=== PATIENT | female | born 1955 | race Caucasian/White ===

== ENCOUNTER → 2018-07-12 | Outpatient (CLI) | payer OTHER ==
[~2018-07-12] MED LIST: ALB0.5 IH; ALBU8.5H IH; ALBU8.5H12 IH; AMOX-559 PO; AZIT-17 PO; BECL8.7A6 IH; BECL8.7A6 INH; BENZ200C15 PO; CALC-1201 PO; CEPH250S35 PO; CHOL2000 PO; CLIN300C99 PO; CODE118S5 PO; DIC10 PO; DICY10CA11 PO; ESC10 PO; ESTR42.5 VG; FENO130C6 PO; FLAX100038 PO; FLUC150T40 PO; FLUT16SP19 NS; FOL1 PO; GLUC-232 PO; HYDR-654 PO; HYO375 PO; IBAN150T6 PO; IBU200 FT; LANS30CA63 PO; LANS30CA70 PO; LEVA1.2527 IH; LEVO-85 PO; LEVO750T44 PO; LISI-362 PO; LISI5TAB25 PO; METH4TAB66 PO; METO-253 PO; METO25TA89 PO; METO25TA93 PO; MONT10TA PO; MU-V1TAB9 PO; NIA100 PO; OMEG-26 PO; OSE75 PO; Oxygen; PRAM0.5T27 PO; PRAM0.7512 PO; PRED20TA6 PO; PROM5SYR PO; SIM10 PO; SIMV-42 PO; SIMV-49 PO; SIMV-54 PO; TOLT4CAP13 PO; UBIQ100C PO; UBIQ100C3 PO; VARI50KI IM; ZOST19404 SQ; [UNRECOGNIZED DRUG - CODE] PO; [UNRECOGNIZED DRUG - REMARK]; oxygen
== END ==
LOC: LAB 11:14
PROVIDERS: ATTEND Nurse Practitioner Family
DX: R73.01 Impaired fasting glucose (principal); R60.0 Localized edema
CPT/HCPCS: 36415; 83036; 85379

== ENCOUNTER → 2018-09-11 | Outpatient (CLI) | payer MEDICARE, OTHER ==
[~2018-09-11] MED LIST changes: +METO25TA23 PO; +METO50TA19 PO
--- NOTE | 2018-09-11 16:43 | RT STRESS TEST REPORT ---
FACILITY: [facility] PATIENT NAME: TOMMY DAMICO : [id number] MR: [id number] V: [id number] EXAM DATE: ORDERING PHYSICIAN: FANNIE MODI TECHNOLOGIST: Shree Acquisition Time: 2018-09-11 09:39:19 Total Exercise Time: 00:08:08 Test Indications: Chest Discomfort Medications: metoprolol (Held) Lisinopril Protocol: EDILIA 2 Max HR: 146 BPM 94% of Pred: 155 BPM Max BP: 205/086 mmHG Max Work Load: 10.1 METS Patient has mild C.P. after completing the stress test while she was laying down for less ludy 1 minut e and resolved without any intervention Patient has symmetrical horizontal ST depression in V4-V6 at the peak of Exercise in stage III, wh ich resolved during recovery ST depression in inferior leads appear to be rate related Impression: EKG changes in Leads V4 - V6 consistent with ischemia Nuclear Medicine report to follow seperately Confirmed by MARK CATALAN ([id number]) on 09/11/2018 4:42:29 PM Referred By: Fannie Modi Overread By: MARK CATALAN
--- NOTE | 2018-09-12 18:47 | RADIOLOGY IMAGING REPORT ---
FACILITY: [facility] - [place] PATIENT NAME: Ivy Araiza : 1955 MR: [id number] V: [id number] EXAM DATE: ORDERING PHYSICIAN: FANNIE KUMAR TECHNOLOGIST: Location: [facility] [place] Patient: Ivy Araiza : 1955 Visit/Account:[id number] Date of Sevice: 09/11/2018 EXAMINATION: Single Isotope SPECT Imaging with Exercise and Gated SPECT Imaging DATE OF EXAMINATION: 09/11/2018 DATE OF INTERPRETATION: 09/12/2018 REQUESTING PHYSICIAN: FANNIE KUMAR INDICATION: The patient is a 63-year-old female evaluated for chest discomfort. PROCEDURE: After informed consent the patient received an intravenous injection of 12 mCi of Tc-99m sestamibi followed at the appropriate time interval by rest imaging. The patient then exercised acc ording to the standard Rodrick protocol for 8 minutes and 8 seconds achieving 10.1 METS. Resting heart rate was 67 bpm with a peak heart rate of 146 bpm which is 94 % of maximal predicted heart rate for age. Blood pressure at rest was 150 / 91; blood pressure during exercise was 205 / 86. There was n o chest pain during exercise. Exercise was discontinued because of reaching target heart rate. Base line EKG demonstrates sinus rhythm with nonspecific ST changes. There were approximately [address] depressions in the anterior lateral leads at peak exercise. Approximately one minute and 30 seconds prior to the termination of exercise, the patient received an intravenous injection of 29.6 mCi of Tc -99m sestamibi followed by stress imaging. RAW DATA: Examination of the summed raw data revealed a good quality study. MYOCARDIAL PERFUSION: The tomographic images demonstrate normal radiotracer uptake on stress imaging and prone stress imaging, a small to moderate size apical perfusion defect is noted on resting image s. GATED IMAGES: The gated images demonstrate normal LV wall motion and systolic function IMPRESSION: 1. Exercise capacity, ST segment depressions were noted peak stress, there was no chest discomfort 2. Normal radiotracer uptake without evidence for ischemia or infarct, normal myocardial perfusion s can. 3. Normal LV systolic function; LVEF 91%. 4. Based on the results of this exam, the patient appears to be at low risk for future cardiovascular events. Report Dictated By: Alan Rodríguez at 09/12/2018 6:29 PM Report E-Signed By: Alan Rodríguez at 09/12/2018 6:44 PM WSN:[id number]
== END ==
LOC: NUC 00:57
PROVIDERS: ATTEND Nurse Practitioner Family
DX: R07.9 Chest pain, unspecified (principal)
CPT/HCPCS: 78452; 93017; A9500

== ENCOUNTER → 2018-10-23 | Outpatient (CLI) | payer MEDICARE, OTHER | LOC: US 00:46 | PROVIDERS: ATTEND Internal Medicine Cardiovascular Disease | DX: R06.02 Shortness of breath (principal) | CPT/HCPCS: 93306 ==